=== PATIENT | female | born 1945 | race Caucasian/White ===

== ENCOUNTER 2020-06-21 21:35 | Observation (INO) ==
[2020-06-21] MEDS ORDERED: Isovue-370 500 ML BOTTLE IVP ONE (22:03)
[2020-06-21 22:08] LABS: Hemoglobin 12.8 g/dL (11.5-15.4); Immature Granulocytes % 0.2 % (0-4); Red Cell Distribution Width 13.6 % (11.5-14.5)
[2020-06-21 22:10] LABS: Basophils % 0.6 %; Eosinophils # 0.1 K/mcL (0.0-0.6); Hematocrit 39.6 % (35.3-44.9); Immature Platelets 3.8 % (1.1-6.1); Lymphocytes # 1.9 K/mcL (0.6-4.6); Lymphocytes % 28.4 %; Mean Corpuscular HGB Conc 32.3 g/dL (31.6-35.5); Mean Corpuscular Hemoglobin 30.6 pg (28.0-33.3); Mean Corpuscular Volume 94.7 fL (83.0-100.0); Mean Platelet Volume 10.7 fL (9.4-12.4); Monocytes # 0.7 K/mcL (0.0-1.3); Monocytes % 10.6 %; Neutrophils # 3.8 K/mcL (1.6-8.9); Platelet Count 137 K/mcL (140-400); Red Blood Count 4.18 M/mcL (3.82-4.97); Segmented Neutrophils % 58.2 %; White Blood Count 6.6 K/mcL (4.3-11.1)
[2020-06-21 22:51] LABS: Platelet Estimate Normal (Normal)
[2020-06-21 22:52] LABS: BUN/Creatinine Ratio 23 (6-26); Blood Urea Nitrogen 26 mg/dL (8-23); Calcium 11.1 mg/dL (8.6-10.3); Carbon Dioxide 19 mEq/L (23-29); Chloride 104 mEq/L (98-107); Glucose 89 mg/dL (70-105); Osmolality,Calculated 288 (280-300); Potassium 3.4 mEq/L (3.5-5.1); Sodium 137 mEq/L (136-145); Troponin I < 0.03 ng/mL (< 0.04); eGFR For African Americans 56 (> 60); eGFR For Non-African Americans 46 (> 60)
[2020-06-22] MEDS ORDERED: MetroNIDAZOLE 500 MG/100 ML 500 MG/100 ML BAG IVPB ONE (02:54)
[2020-06-22] MEDS ORDERED: Cefepime HCl 1,000 MG in 0.9 % Sodium Chloride Mini Bag 100 ML IVPB ONE (02:54)
[2020-06-22] MEDS ORDERED: Melatonin 3 MG TABLET PO PRN (04:15)
[2020-06-22] MEDS ORDERED: Ondansetron 4 MG/2 ML VIAL IVP PRN (04:15)
[2020-06-22] MEDS ORDERED: Naloxone 0.4 MG/ML INJ IVP PRN (04:15)
[2020-06-22] MEDS ORDERED: Potassium Chloride Elixir 20 MEQ/15 ML UDC PO ONE (04:29)
[2020-06-22] MEDS ORDERED: 0.9 % Sodium Chloride 1,000 ML IVC SCH (04:30)
[2020-06-22] MEDS ORDERED: Regadenoson 0.4 MG/5 ML SYRINGE IVP ONE (06:29)
[2020-06-22] MEDS ORDERED: cefTRIAXone 1,000 MG in Water for inj. (sterile) 10 ML IVP SCH (09:00)
[2020-06-22 11:04] VITALS: BP 104/68
[2020-06-22] MEDS: metroNIDAZOLE 500 MG TABLET PO SCH ×2 (12:51→14:12)
== END 2020-06-22 17:29 | disposition home or self-care (01) ==
LOC: 3NENU 21:35 → EMEROOARM 21:35 → SUATTDRO 06-22 04:31 → 3NENU 06-22 04:38
PROVIDERS: ADMIT Student in an Organized Health Care Education/Training Program; ATTEND Family Medicine

== ENCOUNTER 2021-12-30 21:17 | Observation (INO) ==
[2021-12-30 23:31] LABS: Basophils % 0.4 %; Eosinophils % 0.5 %; Hematocrit 40.7 % (35.3-44.9); Hemoglobin 13.1 g/dL (11.5-15.4); Immature Granulocytes % 0.1 % (0-4); Lymphocytes % 13.9 %; Mean Corpuscular HGB Conc 32.2 g/dL (31.6-35.5); Mean Corpuscular Volume 96.2 fL (83.0-100.0); Mean Platelet Volume 11.2 fL (9.4-12.4); Monocytes # 0.5 K/mcL (0.0-1.3); Monocytes % 6.7 %; Neutrophils # 5.9 K/mcL (1.6-8.9); Platelet Count 150 K/mcL (140-400); Red Blood Count 4.23 M/mcL (3.82-4.97); Red Cell Distribution Width 14.2 % (11.5-14.5); Segmented Neutrophils % 78.4 %; White Blood Count 7.5 K/mcL (4.3-11.1)
[2021-12-30 23:37] LABS: INR 0.9; Prothrombin Time 10.4 Seconds (9.4-12.1)
[2021-12-30 23:40] LABS: Activated Partial Thrombo Time 32.7 Seconds (26.0-36.0)
[2021-12-30 23:56] LABS: Calcium 10.9 mg/dL (8.6-10.3)
[2021-12-30 23:58] LABS: Troponin I 0.07 ng/mL (< 0.04)
[2021-12-31] MEDS ORDERED: Acetaminophen 325 MG TABLET PO ONE
[2021-12-31] MEDS: Nitroglycerin 0.4 MG TAB.SUBL SL PRN ×8 (00:55→08:19)
[2021-12-31] MEDS ORDERED: GI Cocktail 40 ML EACH PO ONE (02:03)
[2021-12-31] MEDS ORDERED: Melatonin 3 MG TABLET PO PRN (02:57)
[2021-12-31] MEDS ORDERED: Ondansetron ODT 4 MG TAB.RAPDIS SL PRN (02:57)
[2021-12-31] MEDS ORDERED: Naloxone 0.4 MG/ML INJ IVP PRN (02:57)
[2021-12-31 04:42] LABS: Influenza A PCR Negative (Negative); Influenza B PCR Negative (Negative); Resp. Syncytial Virus PCR Negative (Negative)
[2021-12-31 04:43] LABS: SARS-CoV-2 by PCR (In House) Negative (Negative)
[2021-12-31 06:14] LABS: Hematocrit 36.4 % (35.3-44.9); Hemoglobin 12.1 g/dL (11.5-15.4); Immature Platelets 3.8 % (1.1-6.1); Mean Corpuscular HGB Conc 33.2 g/dL (31.6-35.5); Mean Corpuscular Hemoglobin 31.8 pg (28.0-33.3); Mean Corpuscular Volume 95.5 fL (83.0-100.0); Mean Platelet Volume 10.8 fL (9.4-12.4); Red Blood Count 3.81 M/mcL (3.82-4.97); Red Cell Distribution Width 14.1 % (11.5-14.5); White Blood Count 7.1 K/mcL (4.3-11.1)
[2021-12-31 06:20] LABS: Bacteria,Urine Many per hpf (None-Few); Bilirubin,Urine Negative (Negative); Blood,Urine Negative (Negative); Clarity,Urine Turbid (Clear); Color,Urine Yellow (Yellow); Glucose,Urine (UA) Normal (Normal); Hyaline Casts,Urine Moderate per lpf (None Seen); Ketones,Urine Negative (Negative); Leukocyte Esterase,Urine Large (Negative); Mucus,Urine Few per lpf (None-Few); Nitrite,Urine Negative (Negative); PH,Urine 5.5 pH Units (5.0-8.0); Protein,Urine Trace mg/dL (Neg-Trace); Squamous Epithelial Cell,Urine Few per hpf (None-Few); Transitional Epi Cells,Urine Few per hpf (None-Few); Urobilinogen,Urine Normal (Normal); WBC,Urine 50-100 per hpf (0-3)
[2021-12-31 06:29] LABS: Troponin I 0.23 ng/mL (< 0.04)
[2021-12-31] MEDS ORDERED: *HR* Heparin 5,000 UNIT/ML VIAL IVP PRN ×2 (06:30)
[2021-12-31] MEDS ORDERED: *HR* Heparin 5,000 UNIT/ML VIAL IVP ONE (06:30)
[2021-12-31 06:39] LABS: Magnesium 1.7 mg/dL (1.6-2.6); Phosphorous 2.9 mg/dL (2.7-4.5); Potassium 3.5 mEq/L (3.5-5.1)
[2021-12-31] MEDS: carvediloL 6.25 MG TABLET PO SCH ×2 (07:54→16:28)
[2021-12-31] MEDS ORDERED: Morphine Sulfate 2 MG/ML SYRINGE IVP PRN (08:40)
[2021-12-31] MEDS ORDERED: (Cyclosporine [Restasis] 1 EACH Droperette) OP SCH (09:00)
[2021-12-31] MEDS: Heparin 25,000UNIT/250ML 1/2NS 25,000 UNIT/250 ML IV.SOLN IVC SCH (09:36)
[2021-12-31] MEDS ORDERED: Iopamidol - 370 500 ML MLS IVP ONE (09:57)
[2021-12-31 12:12] LABS: Amphetamine Screen,Urine Negative ng/mL (Cutoff=1000); Barbiturate Screen,Urine Negative ng/mL (Cutoff=200); Benzodiazepines Screen,Urine Negative ng/mL (Cutoff=200); Cannabinoid Screen,Urine Negative ng/mL (Cutoff = 50); Cocaine Screen,Urine Negative ng/mL (Cutoff= 300); Opiate Screen,Urine Negative ng/mL (Cutoff=300); Phencyclidine Screen,Urine Negative ng/mL (Cutoff=25)
[2021-12-31] MEDS ORDERED: levoFLOXacin 750 MG/150 ML 750 MG/150 ML BAG IVPB SCH (17:00)
[2021-12-31] MEDS: levoFLOXacin 750 MG TABLET PO SCH (17:37)
[2022-01-01] MEDS: Multivit/Ca/Min/Fe/FA 1 TAB TABLET PO SCH (08:04)
[2022-01-01] MEDS: lisinopriL 10 MG TABLET PO SCH (08:05)
[2022-01-01] MEDS: levoFLOXacin 750 MG TABLET PO SCH (08:05)
[2022-01-01] MEDS: allopurinoL 300 MG TABLET PO SCH (08:05)
[2022-01-01] MEDS: Loratadine 10 MG TABLET PO SCH (08:05)
[2022-01-01] MEDS: carvediloL 6.25 MG TABLET PO SCH ×2 (08:05→16:43)
[2022-01-01 16:31] LABS: Bilirubin,Urine Negative (Negative); Blood,Urine Negative (Negative); Clarity,Urine Turbid (Clear); Color,Urine Yellow (Yellow); Glucose,Urine (UA) Normal (Normal); Ketones,Urine 20 mg/dL (Negative); Leukocyte Esterase,Urine Large (Negative); Mucus,Urine Few per lpf (None-Few); Nitrite,Urine Negative (Negative); PH,Urine 7.5 pH Units (5.0-8.0); Protein,Urine Trace mg/dL (Neg-Trace); RBC,Urine 15-30 per hpf (0-3); Specific Gravity,Urine 1.023 (1.010-1.025); Squamous Epithelial Cell,Urine Few per hpf (None-Few); Urobilinogen,Urine Normal (Normal); WBC,Urine TNTC per hpf (0-3)
[2022-01-01] MEDS: Heparin 25,000UNIT/250ML 1/2NS 25,000 UNIT/250 ML IV.SOLN IVC SCH (22:27)
[2022-01-02 05:52] LABS: Basophils % 0.7 %; Eosinophils # 0.1 K/mcL (0.0-0.6); Hematocrit 35.9 % (35.3-44.9); Hemoglobin 11.4 g/dL (11.5-15.4); Immature Granulocytes % 0.3 % (0-4); Lymphocytes # 1.2 K/mcL (0.6-4.6); Lymphocytes % 19.8 %; Mean Corpuscular HGB Conc 31.8 g/dL (31.6-35.5); Mean Corpuscular Hemoglobin 30.7 pg (28.0-33.3); Mean Corpuscular Volume 96.8 fL (83.0-100.0); Mean Platelet Volume 11.4 fL (9.4-12.4); Monocytes # 0.7 K/mcL (0.0-1.3); Monocytes % 11.6 %; Neutrophils # 4.1 K/mcL (1.6-8.9); Platelet Count 130 K/mcL (140-400); Red Blood Count 3.71 M/mcL (3.82-4.97); Red Cell Distribution Width 13.9 % (11.5-14.5); Segmented Neutrophils % 66.6 %; White Blood Count 6.1 K/mcL (4.3-11.1)
[2022-01-02] MEDS ORDERED: Regadenoson 0.4 MG/5 ML SYRINGE IVP ONE (06:15)
[2022-01-02] MEDS ORDERED: levoFLOXacin 500 MG TABLET PO SCH (06:30)
[2022-01-02 06:46] LABS: Calcium 9.1 mg/dL (8.6-10.3)
[2022-01-02] MEDS: carvediloL 6.25 MG TABLET PO SCH ×2 (10:26→15:46)
[2022-01-02] MEDS: lisinopriL 10 MG TABLET PO SCH (10:26)
[2022-01-02] MEDS: allopurinoL 300 MG TABLET PO SCH (10:26)
[2022-01-02] MEDS: Loratadine 10 MG TABLET PO SCH (10:26)
[2022-01-02] MEDS: Multivit/Ca/Min/Fe/FA 1 TAB TABLET PO SCH (10:26)
[2022-01-02] MEDS ORDERED: cefTRIAXone 1,000 MG in 0.9 % Sodium Chloride 10 ML IVP SCH (14:00)
[2022-01-02] MEDS ORDERED: polyethylene glycoL 3350 17 GM POWD.PACK PO PRN (15:45)
[2022-01-02] MEDS: methylPREDNISolone 4 MG TABLET PO SCH (15:46)
[2022-01-02] MEDS: *HR* Heparin 5,000 UNIT/ML VIAL SQ SCH (17:28)
[2022-01-03 03:12] LABS: Basophils % 0.2 %; Eosinophils % 0.2 %; Monocytes % 5.1 %
[2022-01-03 03:14] LABS: Hematocrit 36.7 % (35.3-44.9); Hemoglobin 12.1 g/dL (11.5-15.4); Immature Granulocytes % 0.4 % (0-4); Lymphocytes # 0.7 K/mcL (0.6-4.6); Mean Corpuscular Hemoglobin 31.5 pg (28.0-33.3); Mean Corpuscular Volume 95.6 fL (83.0-100.0); Mean Platelet Volume 11.6 fL (9.4-12.4); Monocytes # 0.3 K/mcL (0.0-1.3); Neutrophils # 4.7 K/mcL (1.6-8.9); Platelet Count 125 K/mcL (140-400); Red Blood Count 3.84 M/mcL (3.82-4.97); Red Cell Distribution Width 13.9 % (11.5-14.5); Segmented Neutrophils % 82.1 %; White Blood Count 5.7 K/mcL (4.3-11.1)
[2022-01-03 03:32] LABS: Calcium 9.1 mg/dL (8.6-10.3); Magnesium 2.1 mg/dL (1.6-2.6); Potassium 4.1 mEq/L (3.5-5.1)
[2022-01-03] MEDS: *HR* Heparin 5,000 UNIT/ML VIAL SQ SCH (06:04)
[2022-01-03] MEDS: Heparin 25,000UNIT/250ML 1/2NS 25,000 UNIT/250 ML IV.SOLN IVC SCH (07:34)
[2022-01-03] MEDS: carvediloL 6.25 MG TABLET PO SCH (08:16)
[2022-01-03] MEDS: Loratadine 10 MG TABLET PO SCH (08:16)
[2022-01-03] MEDS: methylPREDNISolone 4 MG TABLET PO SCH (08:17)
[2022-01-03] MEDS: Multivit/Ca/Min/Fe/FA 1 TAB TABLET PO SCH (08:17)
[2022-01-03] MEDS: lisinopriL 10 MG TABLET PO SCH (08:17)
[2022-01-03] MEDS: allopurinoL 300 MG TABLET PO SCH (08:17)
[2022-01-03 08:45] VITALS: BP 119/40; PULSE 69; TEMP 97.9; O2SAT 97
== END 2022-01-03 14:38 | disposition home or self-care (01) ==
LOC: 4WAOSI 21:17 → EMEROOARM 21:17 → SUATTDRO 12-31 02:50 → 2NENU 12-31 02:59
PROVIDERS: ADMIT Student in an Organized Health Care Education/Training Program; ATTEND Pharmacist